=== PATIENT | female | born 1990 | race Caucasian/White ===

== ENCOUNTER 2017-02-09 16:01 | Inpatient (IN) | payer BC ==
[2017-02-09] MEDS ORDERED: ACETAMINOPHEN 500 MG TABLET PO PRN ×2 (16:31→16:42)
[2017-02-09 17:07] LABS: ANION GAP 10.7 (7-16); BLOOD UREA NITROGEN 16 mg/dL (7-17); C-REACTIVE PROTEIN 4.4 mg/dL (0.0-0.9); CARBON DIOXIDE 25.3 mmol/L (22-30); CREATININE 0.6 mg/dL (0.52-1.04); EST GLOMERULAR FILTRATION RATE > 60 ml/min; GLUCOSE,RANDOM 89 mg/dL (70-110)
[2017-02-09 17:10] LABS: BASO % 0.2 % (0-6); EOS % 0.8 % (0-6); GRAN % 56.1 % (47-80); HEMATOCRIT 41.2 % (35.0-47.0); HEMOGLOBIN 13.7 gm/dl (11.6-16.0); LYMPH % 32.8 % (16-45); MEAN CELL VOLUME 86.4 fl (81-97); MEAN CORPUSCULAR HEMOGLOBIN 28.7 pg (27-33); MEAN CORPUSCULAR HGB CONC 33.3 g/dl (32-36); MONO % 10.1 % (0-9); PLATELET COUNT 338 K/uL (130-400); RED BLOOD COUNT 4.77 M/uL (3.80-5.40); RED CELL DISTRIBUTION WIDTH 12.2 % (11.5-14.5); WHITE BLOOD COUNT W/O DIFF 9.5 K/uL (4.2-12.2)
[2017-02-09] MEDS: 0.9 % SODIUM CHLORIDE 1000ML 1,000 ML IV PRN (17:35)
[2017-02-09] MEDS: HYDROCODONE/APAP 5/325MG TABLET PO PRN (18:24)
[2017-02-09] MEDS: CLINDAMYCIN 600MG/50ML PREMIX 600 MG/50 ML BAG IVPB SCH (18:24)
[2017-02-10] MEDS: CLINDAMYCIN 600MG/50ML PREMIX 600 MG/50 ML BAG IVPB SCH ×3 (00:49→16:44)
[2017-02-10] MEDS: 0.9 % SODIUM CHLORIDE 1000ML 1,000 ML IV PRN ×2 (02:43→14:29)
--- NOTE | 2017-02-10 07:05 | History & Physical ---
History of Present Illness - Date of Service Date of Service for History & Physical: 02/10/17 - History of Present Illness Admitting Diagnosis: mastoiditis; intractable pain History of Present Illness: 26yo female with CC of ear pain and enlarged lymph nodes. She has no significant medical history. Patient presented to the [facility] two evenings ago with right ear pain and sore throat for the previous few days. She was given azithromycin which she took the initial dose. Through the evening had worsening right ear pain until she felt like the pressure built and then had release. She believes her ear drum ruptured at that point. coincidentally, her throat pain improved. She came in to the family practice to be reevaluated. It was noted that she had drainage in the IAC of the right ear and tenderness in the mastoid area. She was directly admitted to the floor last night. ICA CT scan showed a mild acute otitis media of the right ear with TM and ossicles intact. there was noted mild fluid in the mastoid air cells which could relate to mild mastoiditis. She was started on Clindamycin 600mg IV q8H. 02/10/17- Today patient states her right ear pain has improved. now it is just a dullness with decreased hearing. left ear feels like it has more pressure and pain building. sore throat resolved. She is having some mild sinus congestion. Continues to have some tenderness behind both ears and down her neck. No fevers or chills. She is eating well. Travel Screening - Travel/Exposure Within Last 30 Days Have you traveled within the last 30 days?: Yes Location Detail:: [place] - Travel/Exposure Within Last Year Have you traveled outside the [place] in the last year?: No - Additonal Travel Details Have you been exposed to anyone with a communicable illness?: No - Travel Symptoms Symptom Screening: None Review of Systems Constitutional: Denies: Chills, Fever, Weakness Eyes: Denies: Eye discharge, Eye pain ENT: Reports: Congestion, Ear pain, Hearing loss. Denies: Dental pain, Epistaxis, Throat pain Respiratory: Denies: Cough, Stridor, Wheezes Cardiovascular: Denies: Chest pain Gastrointestinal: Denies: Abdominal pain, Diarrhea, Nausea Musculoskeletal: Denies: Arthralgia Skin: Denies: Bruising, Change in color, Rash Neurological: Denies: Confusion, Headache, Numbness, Paresthesias, Tingling, Weakness Psychiatric: Denies: Anxiety, Depression Past Medical History - SOCIAL HISTORY Smoking Status: Never smoker Alcohol Use: Occassional Drug Use: None - RESPIRATORY Hx Respiratory Disorders: No - CARDIOVASCULAR Hx Cardio Disorders: No - NEURO Hx Neuro Disorders: No - GI Hx GI Disorders: No - Hx Genitourinary Disorders: No - ENDOCRINE Hx Diabetes: No Hx Thyroid Disease: Yes (goiters) - MUSCULOSKELETAL Hx Musculoskeletal Disorders: No - PSYCH Hx Psych Problems: No - HEMATOLOGY/ONCOLOGY Hx Hematology/Oncology Disorders: No Family Medical History Any Significant Family History?: No H&P Meds/Allergies - Allergies Allergies: Allergies Allergy/AdvReac Type Severity Reaction Status Date / Time Penicillins Allergy ANAPHYLAXIS Verified 02/09/17 18:10 - Active Medications Active Medications: Current Medications Acetaminophen (Tylenol 500mg Tab) 500 mg PO Q6H PRN PRN Reason: PAIN/TEMP Last Admin: 02/09/17 22:26 Dose: 500 mg Hydrocodone Bitart/Acetaminophen ([place] 5mg/325mg) 1 each PO Q6H PRN PRN Reason: Pain - Severe (8-10) Last Admin: 02/09/17 18:24 Dose: 1 each Enoxaparin Sodium (Lovenox) 40 mg SC DAILY [facility] Sodium Chloride () 1,000 mls @ 125 mls/hr IV .Q8H PRN PRN Reason: LARGE VOLUME IV Last Admin: 02/10/17 02:43 Dose: 125 mls/hr Clindamycin Phosphate (Cleocin 600 [id number]) 600 mg in 50 mls @ 100 mls/ hr IVPB Q8H AGUILAR Last Infusion: 02/10/17 01:00 Dose: Infused Physical Exam - Vital Signs Vital Signs: Vital Signs - Last 24 Hrs Temp Pulse Resp BP Pulse Ox 02/10/17 01:00 97.7 F 80 16 100/56 98 02/09/17 21:00 16 02/09/17 17:14 98.8 F 84 16 133/76 98 - General General Appearance: Alert, Oriented x3, Cooperative - Head Head exam: Atraumatic, Normocephalic - Eye Eye exam: Normal appearance, PERRL Pupils: Normal accommodation - ENT Ear exam: Other (erythema with purulent material posterior to right TM; TM intact. left TM opaque but intact and no bulging). negative: Auricular hematoma , Auricular trauma, External canal tenderness Nasal Exam: Normal inspection Mouth exam: Normal external inspection Teeth exam: Normal inspection Throat exam: Tonsillar erythema. negative: Tonsillomegaly - Neck Neck exam: Full ROM, Lymphadenopathy (right anterior cervical ), Tenderness ( TTP over mastoid areas). negative: Meningismus - Respiratory Respiratory exam: Normal lung sounds bilaterally, Accessory muscle use - Cardiovascular Cardiovascular Exam: Regular rate, Normal rhythm, Normal heart sounds - GI/Abdominal GI/Abdominal exam: Soft, Normal bowel sounds. negative: Tenderness - Extremities Extremities exam: Normal inspection, Full ROM, Normal capillary refill. negative: Tenderness - Neurological Neurological exam: Alert, Normal gait, Oriented X3, Reflexes normal - Psychiatric Psychiatric exam: Normal affect, Normal mood - Skin Skin exam: Dry, Intact, Normal color, Warm Results - Labs Result Diagrams: 02/09/17 16:42 02/09/17 16:42 Labs Last 24 Hours: Laboratory Results - last 24 hr 02/09/17 02/09/17 16:42 16:42 WBC 9.5 RBC 4.77 Hgb 13.7 Hct 41.2 MCV 86.4 MCH 28.7 MCHC 33.3 RDW 12.2 Plt Count 338 MPV 11.0 H Gran % 56.1 Lymphocytes % 32.8 Monocytes % 10.1 H Eosinophils % 0.8 Basophils % 0.2 Sodium 140 Potassium 3.7 Chloride 104 Carbon Dioxide 25.3 Anion Gap 10.7 BUN 16 Creatinine 0.6 Estimated GFR > 60 Random Glucose 89 Calcium 9.2 C-Reactive Protein 4.4 H - Imaging and Cardiology ICA CT Status: Report reviewed (mild right OM with intact TM and ossicles. mild fluid in mastoid air cells could correlate with mild mastoiditis) VTE H&P Assessment - Risk for VTE Risk for VTE: Yes Risk Level: Low Risk Assessment Date: 02/10/17 Risk Assessment Time: 07:05 VTE Orders Placed or Will Be Placed: Yes Plan - Inpatient Certification Inpatient Certification: Admit to inpatient care: Based on my medical assessment, after consideration of patient's risk factors (age, co-morbidities and patient presenting symptoms and acuity), I expect that this patient will remain in the hospital greater than or equal to two midnights and that the services needed warrant inpatient care because: Patient Risk Factors: [mastoiditis] Estimated length of stay: [24-48] The patient may reasonably be expected to be discharged or transferred to a hospital within 96 hours after admission to [facility]. Services needed: [IV abx] Post hospital care (if known): [] I certify that my determination is in accordance with my understanding of Medicare requirements for reasonable and necessary inpatient services. 02/10/17 14:24 - Detailed Diagnosis and Plan (1) Mastoiditis Current Visit: Yes Status: Acute Qualifiers: Laterality: right Qualified Code(s): H70.91 - Unspecified mastoiditis, right ear Base Code: H70.90 - UNSPECIFIED MASTOIDITIS, UNSPECIFIED EAR Comment: 02/10/17 - improved clinically with decreased swelling and pain. WBC count wnl at 9.5. CRP mildly elevated at 4.4. patient is afebrile. ICA CT showed mild AOM of right with TM and ossicles intact and mild fluid in the mastoid air cells. -will continue clindamycin 600mg IV q8H for suspected mastoiditis -add cortisporin topical -continue pain management with norco 5/325mg PO q6H prn severe pain and ibuprofen 800mg po tid prn moderate pain -vitals q8H -repeat labs qam -continue to monitor for improvement. consider adding psuedomonas coverage if no improvement. (2) Full code status Current Visit: Yes Status: Acute Base Code: Z78.9 - OTHER SPECIFIED HEALTH STATUS Comment: 02/10/17- patient is full code (3) DVT prophylaxis Current Visit: Yes Status: Acute Base Code: [id number] - Comment: 02/10/17- patient is low risk for DVT with age and restricted mobility -lovenox 40mg sq daily -enocurage ambulation
[2017-02-10] MEDS: HYDROCODONE/APAP 5/325MG TABLET PO PRN ×3 (07:38→23:06)
[2017-02-10] MEDS ORDERED: ENOXAPARIN 40 MG/0.4 ML SYR SC SCH (10:00)
[2017-02-10] MEDS ORDERED: NEOMYCIN/POLYMYXIN B SULF/HC 10ML BTL OT ONE (11:16)
[2017-02-10] MEDS ORDERED: IBUPROFEN 400 MG TABLET PO PRN (11:16)
[2017-02-11] MEDS: CLINDAMYCIN 600MG/50ML PREMIX 600 MG/50 ML BAG IVPB SCH ×2 (00:33→08:26)
--- NOTE | 2017-02-11 00:51 | CT SCAN REPORT ---
EXAM: CT SCAN IAC WO CONTRAST HISTORY: PATIENT HAS DISCHARGE FROM THE RIGHT EAR. TECHNIQUE: Serial axial CT scan of the temporal bones was performed at 0.62 mm intervals without the use of intravenous contrast. Sagittal and coronal reconstructions are provided. COMPARISON: No comparison CTs are available. FINDINGS: Bone windows demonstrate no CT evidence of a fracture or dislocation of the temporal bone or visualized osseous structures of the face and skull. The visualized paranasal sinuses are unremarkable. Minimal fluid is noted within the inferior aspect of the right mastoid air cells. Mild fluid is noted within the right middle ear. The right tympanic membrane is intact. Right middle ear ossicles are intact. The findings suggest mild right-sided otitis media. No significant fluid buildup within the right middle ear cavity is noted. Bilateral external auditory canals are unremarkable. Bilateral cochlea and semicircular canals are unremarkable. The left middle ear demonstrates minimal fluid, which is less than the contralateral middle ear. Left tympanic membrane and middle ear ossicles are intact. Bilateral internal auditory canals are unremarkable. Bilateral visualized globes and orbits are unremarkable. The visualized brain parenchyma is unremarkable. Parapharyngeal fat and prevertebral soft tissue is unremarkable. The visualized bilateral parotid glands are unremarkable. IMPRESSION: MILD RIGHT MIDDLE EAR FLUID IS NOTED, DISCUSSED ABOVE, SUGGESTING MILD RIGHT- SIDED OTITIS MEDIA. CLINICAL CORRELATION IS RECOMMENDED. JOB NUMBER: [id number] [facility]
[2017-02-11 06:53] LABS: BASO % 0.2 % (0-6); EOS % 1.2 % (0-6); GRAN % 54.9 % (47-80); HEMATOCRIT 38.7 % (35.0-47.0); LYMPH % 32.8 % (16-45); MEAN CELL VOLUME 86.4 fl (81-97); MEAN CORPUSCULAR HGB CONC 33.6 g/dl (32-36); MEAN PLATELET VOLUME 10.4 fl (7.4-10.4); MONO % 10.9 % (0-9); PLATELET COUNT 323 K/uL (130-400); RED BLOOD COUNT 4.48 M/uL (3.80-5.40); RED CELL DISTRIBUTION WIDTH 12.1 % (11.5-14.5)
[2017-02-11 07:06] LABS: ANION GAP 6.5 (7-16); BLOOD UREA NITROGEN 6 mg/dL (7-17); C-REACTIVE PROTEIN 1.6 mg/dL (0.0-0.9); CARBON DIOXIDE 25.5 mmol/L (22-30); CREATININE 0.6 mg/dL (0.52-1.04); EST GLOMERULAR FILTRATION RATE > 60 ml/min; GLUCOSE,RANDOM 96 mg/dL (70-110)
--- NOTE | 2017-02-11 07:23 | Discharge Summary ---
Providers Discharge Summary Date: 02/11/17 Date of admission: 02/09/17 16:01 Expected Date of Discharge: 02/11/17 Attending physician: JANAY ALMODOVAR Primary care physician: JANAY ALMODOVAR Physical Exam - Vital Signs Vital Signs: Vital Signs - Last 24 Hrs Temp Pulse Pulse Resp BP Pulse Ox 02/10/17 21:00 80 80 15 02/10/17 20:00 97.9 F 83 20 114/63 100 02/10/17 17:00 97.5 F L 86 16 117/73 100 02/10/17 09:00 98.1 F 88 16 113/70 100 02/10/17 07:43 84 16 - General General Appearance: Alert, Oriented x3, Cooperative - Head Head exam: Atraumatic, Normocephalic - Eye Eye exam: Normal appearance, PERRL Pupils: Normal accommodation - ENT Ear exam: Other (right TM opaque but intact with mild erythema. left TM opaque but intact and no bulging). negative: Auricular hematoma, Auricular trauma, External canal tenderness Nasal Exam: Normal inspection Mouth exam: Normal external inspection Teeth exam: Normal inspection Throat exam: Tonsillar erythema. negative: Tonsillomegaly - Neck Neck exam: Full ROM. negative: Lymphadenopathy, Meningismus, Tenderness - Respiratory Respiratory exam: Normal lung sounds bilaterally, Accessory muscle use - Cardiovascular Cardiovascular Exam: Regular rate, Normal rhythm, Normal heart sounds - GI/Abdominal GI/Abdominal exam: Soft, Normal bowel sounds. negative: Tenderness - Extremities Extremities exam: Normal inspection, Full ROM, Normal capillary refill. negative: Tenderness - Neurological Neurological exam: Alert, Normal gait, Oriented X3, Reflexes normal - Psychiatric Psychiatric exam: Normal affect, Normal mood - Skin Skin exam: Dry, Intact, Normal color, Warm Hospitalization - Hospitalization Admission Diagnosis: mastoiditis; intractable pain - Problem List/Discharge Diagnosis (1) Mastoiditis Current Visit: Yes Status: Acute Discharge Diagnosis: Laterality: right Qualified Code(s): H70.91 - Unspecified mastoiditis, right ear Base Code: H70.90 - UNSPECIFIED MASTOIDITIS, UNSPECIFIED EAR Comment: 02/11/17 - continues to improve. tenderness over the right mastoid area has resolved. Patient has not needed pain medication >24 hours. WBC count wnl at 6.0. CRP down to 1.6 today from 4.4. patient remais afebrile. ICA CT done 02/09/17 showed mild AOM of right with TM and ossicles intact and mild fluid in the mastoid air cells. -transition to clindamycin 300mg pO Q8H for 8 mroe days for total 10 day course -script for cortisporin topical sent as well -continue pain management with ibuprofen 800mg po tid prn moderate pain -will plan to discharge home today with follow up with PCP in next 7-10 days, [facility] home care companion to schedule patient prior to discharge. (2) Full code status Current Visit: Yes Status: Acute Base Code: Z78.9 - OTHER SPECIFIED HEALTH STATUS Comment: 02/11/17- patient is full code (3) DVT prophylaxis Current Visit: Yes Status: Acute Base Code: [id number] - Comment: 02/11/17- patient was low risk for DVT with age and restricted mobility -lovenox 40mg sq daily -enocurage ambulation - Hospitalization Course Disposition: Home, Self-Care Hospital Course: 26yo female with CC of ear pain and enlarged lymph nodes. She has no significant medical history. Patient presented to the [facility] two evenings ago with right ear pain and sore throat for the previous few days. She was given azithromycin which she took the initial dose. Through the evening had worsening right ear pain until she felt like the pressure built and then had release. She believes her ear drum ruptured at that point. coincidentally, her throat pain improved. She came in to the family practice to be reevaluated. It was noted that she had drainage in the IAC of the right ear and tenderness in the mastoid area. She was directly admitted to the floor last night. ICA CT scan showed a mild acute otitis media of the right ear with TM and ossicles intact. there was noted mild fluid in the mastoid air cells which could relate to mild mastoiditis. She was started on Clindamycin 600mg IV q8H. 02/10/17- Today patient states her right ear pain has improved. now it is just a dullness with decreased hearing. left ear feels like it has more pressure and pain building. sore throat resolved. She is having some mild sinus congestion. Continues to have some tenderness behind both ears and down her neck. No fevers or chills. She is eating well. 02/11/17-Patient states she is feeling better today. Has not needed pain medication in >24H. She still feels like her right ear is plugged but not painful. Not having pain in the left ear, throat, or behind her ears. no fevers , chills, or sweating. Says she is eating well without painful chewing. Feels ready to go home. Procedures: Imaging and X-Rays 02/09/17 16:37 IAC WO CONTRAST [CT] Stat Abnormal Labs: Abnormal Lab Results 02/09/17 02/09/17 02/11/17 Range/Units 16:42 16:42 06:35 MPV 11.0 H (7.4-10.4) fl Monocytes % 10.1 H 10.9 H (0-9) % Chloride (98-107) mmol/L Anion Gap (7-16) BUN (7-17) mg/dL C-Reactive Protein 4.4 H (0.0-0.9) mg/dL 02/11/17 Range/Units 06:35 MPV (7.4-10.4) fl Monocytes % (0-9) % Chloride 108 H (98-107) mmol/L Anion Gap 6.5 L (7-16) BUN 6 L (7-17) mg/dL C-Reactive Protein 1.6 H (0.0-0.9) mg/dL Condition at Discharge: (2) Stable Discharge Medications - Discharge Medications Prescriptions: Clindamycin HCl 300 mg PO Q8HR #24 capsule Neomycin/Polymyxin B Sulf/Hc [Cortisporin Otic] 2 drop AFFEAR QID #10 ml Home Medications: Ambulatory Orders Clindamycin HCl 300 mg PO Q8HR #24 capsule 02/11/17 [Last Taken Unknown] Neomycin/Polymyxin B Sulf/Hc [Cortisporin Otic] 2 drop AFFEAR QID #10 ml [Last Taken Unknown] Discharge Plan - Discharge Instructions Diet at Discharge: Regular Diet Additional Instructions: Follow up with [facility] as scheduled by [place] Continue clindamycin 300mg by mouth every 8 hours for 8 more days May use the cortisporin ear drops up to four times daily as needed May use ibuprofen 600mg by mouth every 8 hours as needed for moderate to severe pain Please call with any questions or concerns in the interim Return to ED for any new or worsening symptoms
== END 2017-02-11 10:55 | disposition home or self-care (01) | DRG 153 ==
LOC: MEDSURG 16:01
PROVIDERS: ADMIT Family Medicine; ATTEND Family Medicine
DX: H70.91 Unspecified mastoiditis, right ear (principal); Z78.9 Other specified health status; R59.0 Localized enlarged lymph nodes; E04.9 Nontoxic goiter, unspecified
CPT/HCPCS: 70480; 80048; 85025; 86140; 99223; 99238